=== PATIENT | male | born 2000 | race Caucasian/White ===

== ENCOUNTER 2021-06-22 20:26 | Emergency (ER) | payer OTHER ==
[~2021-06-22] VITALS: Ht 172.7 cm; Wt 81.6 kg
[2021-06-22 21:20] VITALS: BP 117/75
--- NOTE | 2021-06-22 21:23 | NUR ---
TO LOBBY A/W BED AMBULATORY
--- NOTE | 2021-06-22 22:31 | NUR ---
PT TAKEN TO ER BED 02
[2021-06-22] MEDS ORDERED: LIDOCAINE 2% 1000 MG/50 ML VIAL INJ ONE (22:42)
[2021-06-22] MEDS ORDERED: LIDOCAINE 2% 100 MG/5 ML SYR IVP ONE (22:44)
[2021-06-22] MEDS ORDERED: LIDOCAINE/EPI 1% 1:100000 20 ML VIAL INJ ONE (22:45)
[2021-06-22] MEDS ORDERED: LIDOCAINE/EPI 2% 1:100000 20 ML VIAL INJ ONE (22:46)
--- NOTE | 2021-06-22 23:15 | NUR ---
RAD AT BEDSIDE
--- NOTE | 2021-06-22 23:15 | NUR ---
PT C/O LACERATION FROM STEEPING ON A PIECE OF GLASS X 1 DAY. PT STATES THERE IS NO GLASS LEFT IN FOOT. MEDICAL HX: ANXIETY, ADHD MEDICATIONS: METAZAPINE,OXYCARPIZIEN, AND DIAMPIZIEN
[2021-06-22 23:55] VITALS: BP 117/75
--- NOTE | 2021-06-22 23:55 | NUR ---
Patient discharged with v/s stable. Written and verbal after care instructions given and explained. Patient verbalized understanding. Ambulatory with steady gait. All questions addressed prior to discharge. Advised to follow up with PMD.
== END 2021-06-22 23:55 | disposition home or self-care (01) ==
LOC: MED 20:26
DX: S91.311A Laceration without foreign body, right foot, initial encounter (principal); W25.XXXA Contact with sharp glass, initial encounter; Y93.89 Activity, other specified; Y92.89 Other specified places as the place of occurrence of the external cause; Y99.8 Other external cause status
CPT/HCPCS: 73630; 90471; 90715; 99283; J2001